=== PATIENT | female | born 1940 | race Caucasian/White ===

== ENCOUNTER 2020-04-11 08:07 | Outpatient (CLI) | payer MEDICARE, SELFPAY ==
[2020-04-11 08:56] LABS: Anion Gap 7 mmol/L (8-16); Blood Urea Nitrogen 22 mg/dL (7-17); Calcium 9.2 mg/dL (8.4-10.2); Carbon Dioxide 30 mmol/L (22-30); Chloride 103 mmol/L (98-107); Cholesterol 263 mg/dL (0-200); Estimated Glomerular Filt Rate 60; Glucose 95 mg/dL (65-105); HDL Direct 81 mg/dL; Potassium 4.6 mmol/L (3.4-5.0); Sodium 140 mmol/L (137-145); Triglycerides 87 mg/dL (<150)
[2020-04-11 09:06] LABS: LDL Cholesterol Direct 130 mg/dL
[2020-04-11 09:47] LABS: Vitamin D 25 Hydroxy 69.9 ng/mL
== END 2020-04-11 08:08 | disposition home or self-care (01) ==
LOC: ANHLAB 08:10
PROVIDERS: PCP Internal Medicine; Visit Provider Internal Medicine
DX: E78.5 Hyperlipidemia, unspecified (principal); I10 Essential (primary) hypertension; E55.9 Vitamin D deficiency, unspecified
CPT/HCPCS: 36415; 80048; 80061; 82306

== ENCOUNTER 2020-05-10 08:48 | Outpatient (CLI) | payer MEDICARE, SELFPAY | END 2020-05-10 08:49 | disposition home or self-care (01) | LOC: ANHAUDIO 08:49 | PROVIDERS: PCP Internal Medicine; Visit Provider Internal Medicine | DX: H90.3 Sensorineural hearing loss, bilateral (principal) | CPT/HCPCS: 92557; 92567 ==

== ENCOUNTER 2020-11-20 14:51 | Outpatient (RCR) | payer MEDICARE, SELFPAY | END 2021-02-18 23:59 | disposition home or self-care (01) | LOC: ANHAUDASC 14:51 | PROVIDERS: PCP Internal Medicine; Visit Provider Internal Medicine | DX: Z46.1 Encounter for fitting and adjustment of hearing aid (principal) | CPT/HCPCS: 92593 ==

== ENCOUNTER 2021-04-06 07:26 | Outpatient (CLI) | payer MEDICARE, SELFPAY ==
[2021-04-06 09:48] LABS: Anion Gap 4 mmol/L (8-16); Blood Urea Nitrogen 20 mg/dL (7-17); Calcium 9.6 mg/dL (8.4-10.2); Carbon Dioxide 31 mmol/L (22-30); Chloride 105 mmol/L (98-107); Cholesterol 268 mg/dL (0-200); Estimated Glomerular Filt Rate 60; Glucose 90 mg/dL (65-110); HDL Direct 80 mg/dL; Potassium 4.7 mmol/L (3.4-5.0); Sodium 140 mmol/L (137-145); Triglycerides 119 mg/dL (<150)
[2021-04-06 09:58] LABS: LDL Cholesterol Direct 106 mg/dL
== END 2021-04-06 07:27 | disposition home or self-care (01) ==
PROVIDERS: PCP Internal Medicine; Visit Provider Internal Medicine
DX: E78.5 Hyperlipidemia, unspecified (principal); R03.0 Elevated blood-pressure reading, without diagnosis of hypertension
CPT/HCPCS: 36415; 80048; 80061

== ENCOUNTER 2021-06-07 13:42 | Outpatient (CLI) | payer MEDICARE, SELFPAY | END 2021-06-07 13:43 | disposition home or self-care (01) | LOC: ANHAUDASC 13:44 | PROVIDERS: PCP Internal Medicine; Visit Provider Internal Medicine | DX: H91.90 Unspecified hearing loss, unspecified ear (principal) | CPT/HCPCS: 92557; 92567 ==

== ENCOUNTER 2021-10-05 08:46 | Outpatient (RCR) | payer SELFPAY | END 2022-01-03 23:59 | disposition home or self-care (01) | LOC: ANHAUDASC 08:46 | PROVIDERS: PCP Internal Medicine; Visit Provider Internal Medicine | DX: Z46.1 Encounter for fitting and adjustment of hearing aid (principal) | CPT/HCPCS: 92593 ==

== ENCOUNTER 2022-01-31 09:50 | Outpatient (RCR) | payer SELFPAY | END 2022-05-01 23:59 | disposition home or self-care (01) | LOC: ANHAUDASC 09:50 | PROVIDERS: PCP Internal Medicine; Visit Provider Internal Medicine | DX: Z46.1 Encounter for fitting and adjustment of hearing aid (principal) | CPT/HCPCS: 92593 ==

== ENCOUNTER 2022-04-18 09:58 | Outpatient (CLI) | payer MEDICARE, SELFPAY ==
[2022-04-18 10:41] LABS: Alanine Aminotransferase 11 U/L (6-35); Albumin Level 4.3 g/dL (3.5-5.1); Alkaline Phosphatase 72 U/L (38-126); Anion Gap 7 mmol/L (8-16); Aspartate Amino Transferase 25 U/L (14-36); Blood Urea Nitrogen 22 mg/dL (7-17); Carbon Dioxide 30 mmol/L (22-30); Chloride 101 mmol/L (98-107); Cholesterol 278 mg/dL (0-200); Estimated Glomerular Filt Rate 60; Glucose 96 mg/dL (65-110); HDL Direct 84 mg/dL; Potassium 4.7 mmol/L (3.4-5.0); Sodium 138 mmol/L (137-145); Triglycerides 100 mg/dL (<150)
[2022-04-18 10:52] LABS: LDL Cholesterol Direct 122 mg/dL
[2022-04-18 11:07] LABS: Vitamin D 25 Hydroxy 48.7 ng/mL
== END 2022-04-18 09:59 | disposition home or self-care (01) ==
PROVIDERS: PCP Internal Medicine; Visit Provider Internal Medicine
DX: E78.5 Hyperlipidemia, unspecified (principal); I10 Essential (primary) hypertension; E55.9 Vitamin D deficiency, unspecified
CPT/HCPCS: 36415; 80053; 80061; 82306

== ENCOUNTER 2022-06-10 09:49 | Outpatient (CLI) | payer MEDICARE, SELFPAY | END 2022-06-10 09:50 | disposition home or self-care (01) | PROVIDERS: PCP Internal Medicine; Visit Provider Nurse Practitioner | DX: H90.3 Sensorineural hearing loss, bilateral (principal) | CPT/HCPCS: 92557; 92567 ==

== ENCOUNTER 2022-06-27 09:42 | Outpatient (CLI) | payer MEDICARE, SELFPAY ==
--- NOTE | ~2022-06-27 | MM_ITS ---
EXAMINATION: MM screening [facility] BI w tariq HISTORY: Screening TECHNIQUE: Craniocaudal and mediolateral oblique 3-D tomosynthesis images were obtained and synthetic 2-D images were generated. CAD analysis was submitted and interpreted. COMPARISON: Comparison to multiple prior studies sequentially, with oldest reviewed study dated 03/24. BREAST PARENCHYMAL COMPOSITION: There are scattered areas of fibroglandular density. FINDINGS: There is no evidence of suspicious mass, calcification, or architectural distortion to sugg est malignancy in either breast. There has been no suspicious interval change. IMPRESSION: 1. No mammographic evidence of malignancy. 2. Recommend routine screening mammography in one year. BI-RADS Category 1: Negative Reviewed, dictated and finalized at location A.
== END 2022-06-27 09:43 | disposition home or self-care (01) ==
PROVIDERS: PCP Internal Medicine; Visit Provider Nurse Practitioner
DX: Z12.31 Encounter for screening mammogram for malignant neoplasm of breast (principal)
CPT/HCPCS: 77063; 77067

== ENCOUNTER 2023-04-24 08:26 | Outpatient (CLI) | payer MEDICARE, SELFPAY ==
[2023-04-24 09:14] LABS: Alanine Aminotransferase 16 U/L (6-35); Albumin Level 4.2 g/dL (3.5-5.1); Alkaline Phosphatase 73 U/L (38-126); Anion Gap 4 mmol/L (8-16); Aspartate Amino Transferase 29 U/L (14-36); Bilirubin,Total 1.1 mg/dL (0.2-1.3); Blood Urea Nitrogen 22 mg/dL (7-17); Calcium 9.2 mg/dL (8.4-10.2); Carbon Dioxide 31 mmol/L (22-30); Chloride 103 mmol/L (98-107); Cholesterol 272 mg/dL (0-200); Estimated Glomerular Filt Rate > 60; Glucose 92 mg/dL (65-110); HDL Direct 86 mg/dL; Potassium 4.6 mmol/L (3.4-5.0); Sodium 138 mmol/L (137-145); Triglycerides 83 mg/dL (<150)
[2023-04-24 09:25] LABS: LDL Cholesterol Direct 131 mg/dL
[2023-04-24 09:58] LABS: Vitamin D 25 Hydroxy 32.3 ng/mL
== END 2023-04-24 08:27 | disposition home or self-care (01) ==
PROVIDERS: PCP Nurse Practitioner; Visit Provider Nurse Practitioner
DX: E78.5 Hyperlipidemia, unspecified (principal); E55.9 Vitamin D deficiency, unspecified
CPT/HCPCS: 36415; 80053; 80061; 82306

== ENCOUNTER 2023-06-26 07:48 | Outpatient (CLI) | payer MEDICARE, SELFPAY | END 2023-06-26 07:49 | disposition home or self-care (01) | LOC: ANHAUDASC 08:43 | PROVIDERS: PCP Nurse Practitioner; Visit Provider Nurse Practitioner | DX: H90.3 Sensorineural hearing loss, bilateral (principal) | CPT/HCPCS: 92557; 92567 ==

== ENCOUNTER 2023-09-29 09:31 | Outpatient (CLI) | payer MEDICARE, SELFPAY ==
--- NOTE | ~2023-09-29 | MM_ITS ---
EXAMINATION: MM screening [facility] BI w tariq HISTORY: Screening mammogram TECHNIQUE: Craniocaudal and mediolateral oblique 3-D tomosynthesis images were obtained and synthetic 2-D images were generated. CAD analysis was submitted and interpreted. COMPARISON: 06/27/2022, 04/23/2016 BREAST PARENCHYMAL COMPOSITION: There are scattered areas of fibroglandular density. FINDINGS: No suspicious mass, calcification, or architectural distortion are identified in either rivka ast to suggest malignancy. There has been no suspicious interval change. IMPRESSION: 1. No mammographic evidence of malignancy. 2. Recommend routine screening mammography while the patient remains in good health. BI-RADS Category 1: Negative Reviewed, dictated and finalized at location A. MANAGER IMPRESSION: 1. No mammographic evidence of malignancy. 2. Recommend routine screening mammography while the patient remains in good he alth. BI-RADS Category 1: Negative
== END 2023-09-29 09:32 | disposition home or self-care (01) ==
LOC: ANHIMG 09:33
PROVIDERS: PCP Nurse Practitioner; Visit Provider Nurse Practitioner
DX: Z12.31 Encounter for screening mammogram for malignant neoplasm of breast (principal)
CPT/HCPCS: 77063; 77067

== ENCOUNTER 2024-05-01 08:00 | Outpatient (CLI) | payer MEDICARE, SELFPAY ==
[2024-05-01 08:51] LABS: Hematocrit 43.3 % (37.0-47.0); Mean Corpuscular HGB Conc 32.3 g/dl (32-36); Mean Corpuscular Hemoglobin 29.2 pg (26-34); Mean Corpuscular Volume 90.2 fl (80-100); Mean Platelet Volume 11.1 fl (7.4-10.4); Platelet Count Result 305 k/mm3 (150-375); Red Cell Distribution Width 14.2 % (11.5-14.5); White Blood Count 4.9 K/mm3 (4.5-10.0)
[2024-05-01 09:27] LABS: LDL Cholesterol Direct 137 mg/dL
[2024-05-01 09:30] LABS: Alanine Aminotransferase 16 U/L (6-35); Albumin Level 4.3 g/dL (3.5-5.1); Alkaline Phosphatase 71 U/L (38-126); Anion Gap 8 mmol/L (4-12); Aspartate Amino Transferase 30 U/L (14-36); Bilirubin,Total 1.2 mg/dL (0.2-1.3); Blood Urea Nitrogen 19 mg/dL (7-17); Calcium 9.3 mg/dL (8.4-10.2); Carbon Dioxide 30 mmol/L (22-30); Chloride 102 mmol/L (98-107); Cholesterol 274 mg/dL (0-200); Estimated Glomerular Filt Rate 60; Glucose 91 mg/dL (65-110); HDL Direct 91 mg/dL; Potassium 4.3 mmol/L (3.4-5.0); Sodium 140 mmol/L (137-145); Triglycerides 99 mg/dL (<150)
== END 2024-05-01 08:01 | disposition home or self-care (01) ==
LOC: ANHLAB 08:03
PROVIDERS: PCP Nurse Practitioner; Visit Provider Nurse Practitioner
DX: E78.5 Hyperlipidemia, unspecified (principal); Z13.29 Encounter for screening for other suspected endocrine disorder
CPT/HCPCS: 36415; 80053; 80061; 84443; 85027

== ENCOUNTER 2024-05-27 12:48 | Outpatient (CLI) | payer MEDICARE, SELFPAY | END 2024-05-27 12:49 | disposition home or self-care (01) | LOC: ANHAUDASC 12:50 | PROVIDERS: PCP Nurse Practitioner; Visit Provider Nurse Practitioner | DX: H90.3 Sensorineural hearing loss, bilateral (principal) | CPT/HCPCS: 92557; 92567 ==

== ENCOUNTER 2024-11-08 10:00 | Outpatient (CLI) | payer MEDICARE, SELFPAY ==
--- NOTE | ~2024-11-08 | MM_ITS ---
EXAMINATION: MM screening mario BI w tariq HISTORY: Screening TECHNIQUE: Craniocaudal and mediolateral oblique 3-D tomosynthesis images were obtained and synthetic 2-D images were generated. CAD analysis was submitted and interpreted. COMPARISON: Comparison to multiple prior studies sequentially, with oldest reviewed study dated 04/23. BREAST PARENCHYMAL COMPOSITION: Not dense: There are scattered areas of fibroglandular density. FINDINGS: There is no evidence of suspicious mass, calcification, or architectural distortion to sugg est malignancy in either breast. There has been no suspicious interval change. IMPRESSION: 1. No mammographic evidence of malignancy. 2. Recommend routine screening mammography in one year. BI-RADS Category 1: Negative Reviewed, dictated and finalized at location B.
--- OUTSIDE RECORDS SUMMARY | 2024-11-08 11:25 | XMS_ITS | Patient Health Summary ---
Author Organization [facility] Address [address] [facility] [place] [address] Care Team Providers Care Mobility Specialist Name Role Phone Gabriel Walter MD Primary Care Provider [phone] Note from [facility],non-owned Affiliates and Associated Physician Practices is amultiple site organization consisting of ambulatory clinics and hospital sitesin [place], [place], [place]. This disclosure is being madepursuant to the Care Everywhere program and may not contain all information available regarding this patient. Last updated 18.[facility] Allergies * Sulfa Drugs(Skin Reactions) -Medium Criticality Medications * Be aware that medications may not be up to date on this document. Alwaysverify current medications with the patient. * esomeprazole strontium 24.65 MG capsule(Started 04/22/2016) Take by mouth. * vitamin C (ASCORBIC ACID) 1000 MG tablet(Started 04/22/2016) Take by mouth. * Calcium Magnesium 240-180-100 LIQD(Started 04/22/2016) Take by mouth. Social History Tobacco Use Types Packs/Day Years Used Date Smoking Tobacco: Never Smokeless Tobacco: Never Alcohol Use Standard Drinks/Week Comments No 0 (1 standard drink = 0.6 oz pur e alcohol) Sex and Gender Information Value Date Recorded Sex Assigned at Not on file Gender Identity Not on file Sexual Orientation Not on file Last Filed Vital Signs Vital Sign Reading Time Taken Comments Blood Pressure 174/102 10/20/2017 11:10 AM CONSUMER RELATIONS SPECIALIST Pulse 67 10/20/2017 11:10 AM CONSUMER RELATIONS SPECIALIST Temperature - - Respiratory Rate - - Oxygen Saturation 96% 10/20/2017 11:10 AM CONSUMER RELATIONS SPECIALIST Inhaled Oxygen Concentration - - Weight 59 kg (130 lb) 10/20/2017 8:40 AM CONSUMER RELATIONS SPECIALIST Height 157.5 cm (5' 2 ) 10/20/2017 8:40 AM CONSUMER RELATIONS SPECIALIST Body Mass Index 23.78 10/20/2017 8:40 AM CONSUMER RELATIONS SPECIALIST Procedures * DERMATOPATHOLOGY(Performed 04/06/2024) * DERMATOPATHOLOGY(Performed 02/28/2021) * DERMATOPATHOLOGY(Performed 04/05/2020) * DERMATOPATHOLOGY(Performed 09/09/2017) * DERMATOPATHOLOGY(Performed 03/04/2017) * DERMATOPATHOLOGY(Performed 10/22/2016) * DERMATOPATHOLOGY(Performed 03/26/2016) * DERMATOPATHOLOGY(Performed 06/27/2015) * DERMATOPATHOLOGY(Performed 04/09/2011) Results * DERMATOPATHOLOGY (04/06/2024 12:00 AM CDT) Only the most recent of9 resultswithin the time period is included. Case Report Dermatopathology Report Case: [id number] Authorizing Provider: Kwame Pathak MD Collected: 04/06/2024 12:00 AM Ordering Location: [facility] - Received: 04/08/2024 09:52 AM DermPath Lab Pathologist: Nara Christopher MD Specimen: Skin, left distal medial leg above ankle 1:26 PM CDT DERMATOPATHOLOGY LABORATORY Final Diagnosis Specimen A. SKIN, left distal medial leg above ankle: DERMAL SCAR WITH OVERLYING EPIDERMAL CHANGES (L90.5) 1:26 PM CDT DERMATOPATHOLOGY LABORATORY Clinical History R/O SCC 1:26 PM CDT DERMATOPATHOLOGY LABORATORY Gross Description Specimen A: Received is one formalin filled container labeled with the patient's name and designated left distal medial leg above ankle. The specimen consists of a shave biopsy measuring 3x4x1 mm. Jar 0. 1:26 PM CDT DERMATOPATHOLOGY LABORATORY Microscopic Description Specimen A. SKIN, left distal medial leg above ankle: Sections show focally laminated fibroplasia and prominent blood vessels. There are plump fibrocytes and inflammation. Reactive epidermal changes are also identified consistent with a prior biopsy site. 4 1:26 PM CDT DERMATOPATHOLOGY LABORATORY Disclaimer An external and internal positive and negative controls are appropriate for the histochemical, immunohistochemical and immunofluorescence stain(s) in this case (if any), except where stated explicitly. The performance characteristics of the stain(s) cited in this report were developed and its performance characteristic determined by the Dermatopathology Laboratory at [facility], directed by Dr. Delroy Christopher. These tests need not be, and therefore are not, approved by the [place] Food and Drug Administration. The tests are used for clinical purposes. Billing Codes Specimen Charges Stain Charges 20773 1 4 1:26 PM CDT DERMATOPATHOLOGY LABORATORY Embedded Images 4 1:26 PM CDT DERMATOPATHOLOGY LABORATORY Pathology/Cytolog y TISSUE SPECIMEN FROM SKIN / Unknown 04/06/2024 04/08/2024 9:52 AM CDT Kwame Pathak MD LAB - PATHOLOGY/CYTO LOGY ORDERABLES DERMATOPATHOLOGY LABORATORY [facility] - Department of Dermatology [facility], 3rd Floor [address] [phone] Care Teams Mobility Specialist Relationship Specialty Start Date End Date Gabriel Walter MD [address] [place] [address] PCP - General 07/13/15
--- OUTSIDE RECORDS SUMMARY | 2024-11-08 11:25 | XMS_ITS | Encounter Summary ---
Author Organization [facility] Address [address] [place] [address] Care Team Providers Care Implementation Analyst Name Role Phone Gabriel Walter MD Primary Care Provider [phone] Encounter Details Date Type Department Care Team (Late st Contact Info) Description 04/07/2020 Lab Requisition [facility] [address] [place] [address] Kwame Pathak MD [address] [place] [address] Social History Tobacco Use Types Packs/Day Years Used Date Smoking Tobacco: Never Smokeless Tobacco: Never Alcohol Use Standard Drinks/Week Comments No 0 (1 standard drink = 0.6 oz pur e alcohol) Sex and Gender Information Value Date Recorded Sex Assigned at Not on file Gender Identity Not on file Sexual Orientation Not on file documented as of this encounter Plan of Treatment Not on file documented as of this encounter Procedures Procedure Name Priority Date/Time Associated Diagnosis Comments DERMATOPATHOLOGY Routine 04/05/2020 12:0 0 AM CDT documented in this encounter Results * DERMATOPATHOLOGY (04/05/2020 12:00 AM CDT) Case Report Dermatopathology Report Case: [id number] Authorizing Provider: Kwame Pathak MD Collected: 04/05/2020 12:00 AM Ordering Location: [facility] Received: 04/07/2020 02:30 PM Pathologist: Brinda Abreu MD Specimen: Skin, right sup lateral calf 0 3:42 PM CDT DERMATOPATHOLOGY LABORATORY Final Diagnosis Specimen A. SKIN, right sup lateral calf: SQUAMOUS CELL CARCINOMA, WELL DIFFERENTIATED (C44.722) 0 3:42 PM CDT DERMATOPATHOLOGY LABORATORY Clinical History R/O ISK, SCC,BCC 0 3:42 PM CDT DERMATOPATHOLOGY LABORATORY Gross Description Specimen A: Received is one formalin filled container labeled with the patient's name and designated right sup lateral calf. The specimen consists of a shave biopsy measuring 56c16v8 mm,bisected. Jar 0. 0 3:42 PM CDT DERMATOPATHOLOGY LABORATORY Microscopic Description Specimen A. SKIN, right sup lateral calf: Arising in the epidermis and extending into the dermis there are irregularly shaped aggregates of keratinocytes showing evidence of premature cornification. 0 3:42 PM CDT DERMATOPATHOLOGY LABORATORY Disclaimer An external and internal positive and negative controls are appropriate for the histochemical, immunohistochemical and immunofluorescence stain(s) in this case (if any), except where stated explicitly. The performance characteristics of the stain(s) cited in this report were developed and its performance characteristic determined by the Dermatopathology Laboratory at [facility], directed by Dr. Delroy Christopher. These tests need not be, and therefore are not, approved by the [place] Food and Drug Administration. The tests are used for clinical purposes. Billing Codes Specimen Charges Stain Charges 86613 1 0 3:42 PM CDT DERMATOPATHOLOGY LABORATORY Embedded Images 0 3:42 PM CDT DERMATOPATHOLOGY LABORATORY Pathology/Cytolog y TISSUE SPECIMEN FROM SKIN / Unknown 04/05/2020 04/07/2020 2:30 PM CDT Kwame Pathak MD LAB - PATHOLOGY/CYTO LOGY ORDERABLES DERMATOPATHOLOGY LABORATORY [facility] - Department of Dermatology [employer] [place]/[address] [phone] documented in this encounter Visit Diagnoses Not on filedocumented in this encounter Care Teams Implementation Analyst Relationship Specialty Start Date End Date Gabriel Walter MD [address] [facility] [address] [place] [address] PCP - General 07/13/15 documented as of this encounter
--- OUTSIDE RECORDS SUMMARY | 2024-11-08 11:25 | XMS_ITS | Encounter Summary ---
Author Organization [facility] Address [address] [facility] [place] [address] Care Team Providers Care Audiology Director Name Role Phone Gabriel Walter MD Primary Care Provider [phone] Encounter Details Date Type Department Care Team (Late st Contact Info) Description 04/08/2024 Lab Requisition [facility] - [facility] Lab [address] [facility], [place] [address] Kwame Pathak MD [address] [place] [address] Social History Tobacco Use Types Packs/Day Years [...] Priority Date/Time Associated Diagnosis Comments DERMATOPATHOLOGY Routine 04/06/2024 12:0 0 AM CDT documented in this encounter Results * DERMATOPATHOLOGY (04/06/2024 12:00 AM CDT) Case Report Dermatopathology Report Case: [id number] Authorizing Provider: Kwame Pathak MD Collected: 04/06/2024 12:00 AM Ordering Location: [facility] - Received: 04/08/2024 09:52 AM DermPath Lab Pathologist: Nara Christopher MD Specimen: Skin, left distal medial leg above ankle 1:26 PM CDT DERMATOPATHOLOGY LABORATORY Final Diagnosis Specimen A. SKIN, left distal medial leg above ankle: DERMAL SCAR WITH OVERLYING EPIDERMAL CHANGES (L90.5) 1:26 PM T DERMATOPATHOLOGY LABORATORY Clinical History R/O SCC 1:26 [...] identified consistent with a prior biopsy site. 1:26 PM CDT DERMATOPATHOLOGY LABORATORY Disclaimer An external and internal positive and negative controls are appropriate for the histochemical, immunohistochemical and immunofluorescence stain(s) in this case (if any), except where stated explicitly. The performance characteristics of the stain(s) cited in this report were developed and its performance characteristic determined by the Dermatopathology Laboratory at [facility], directed by Dr. Delroy Christopher. These tests need not be, and therefore are not, approved by the [place] Food and Drug Administration. The tests are used for clinical purposes. Billing Codes Specimen Charges Stain Charges 45697 1 1:26 PM CDT DERMATOPATHOLOGY LABORATORY Embedded Images 1:26 PM CDT DERMATOPATHOLOGY LABORATORY Pathology/Cytolog y TISSUE SPECIMEN FROM SKIN / Unknown 04/06/2024 04/08/2024 9:52 AM CDT Kwame Pathak MD LAB - PATHOLOGY/CYTO LOGY ORDERABLES DERMATOPATHOLOGY LABORATORY [facility] - Department of Dermatology [address], [address] [phone] documented in this encounter Visit Diagnoses Not on filedocumented in this encounter Care Teams Audiology Director Relationship Specialty Start Date End Date Gabriel Walter MD [address] [facility] [address] [place] [address] PCP - General 07/13/15 documented as of this encounter
--- OUTSIDE RECORDS SUMMARY | 2024-11-08 11:25 | XMS_ITS | Referral Summary ---
Author Organization [facility] [employer] Address [address] [facility] [place] [address] Care Team Providers Care Retort Kiln Burner Name Role Phone Gabriel Walter MD Primary Care Provider [phone] Source Comments [facility],non-owned Affiliates and Associated Physician Practices is amultiple site organization consisting of ambulatory clinics and hospital sitesin [place], [place], [place] and [place]. This disclosure is being madepursuant to the Care Everywhere program and may not contain all information available regarding this patient. Last updated 18.[facility] [employer] Allergies Active Allergy Reactions Criticality Noted Date Comments Sulfa Drugs Skin Reactions Medium 08/07/2015 Medications * Be aware that medications may not be up to date on this document. Alwaysverify current medications with the patient. Medication Sig Dispensed Refills Start Date End Date Status esomeprazole strontium 24.65 MG capsule Take by mouth. 04/22/2016 Acti ve vitamin C (ASCORBIC ACID) 1000 MG tablet Take by mouth. 04/22/2016 Active Calcium Magnesium 240-180-100 LIQD Take by mouth. 04/22/2016 Acti ve Social History Tobacco Use Types Packs/Day Years [...] Comments Blood Pressure 174/102 10/20/2017 11:10 AM MANAGER RESORT Pulse 67 10/20/2017 11:10 AM MANAGER RESORT Temperature - - Respiratory Rate - - Oxygen Saturation 96% 10/20/2017 11:10 AM MANAGER RESORT Inhaled Oxygen Concentration - - Weight 59 kg (130 lb) 10/20/2017 8:40 AM MANAGER RESORT Height 157.5 cm (5' 2 ) 10/20/2017 8:40 AM MANAGER RESORT Body Mass Index 23.78 10/20/2017 8:40 AM MANAGER RESORT Plan of Treatment Not on file Care Teams Retort Kiln Burner Relationship Specialty Start Date End Date Gabriel Walter MD [address] [place] [address] PCP - General 07/13/15
--- OUTSIDE RECORDS SUMMARY | 2024-11-08 11:25 | XMS_ITS | Referral Summary ---
Author Organization [facility] Address [address] [place] [address] Care Team Providers Care Inside Sales Executive Name Role Phone Anuel Norton DO Primary Care Provider [phone] Allergies Active Allergy Reactions Criticality Noted Date Comments Sulfa (Sulfonamide Antibiotics) Rash Reaction: RASH, Medications calcium citrate 250 mg calcium tablet daily. Active glucosamine-msm- magnesium-vitC (GLUCOSAMINE COMPLEX-MSM) capsule Active magnesium oxide 500 mg capsule Activ e multivitamin tabletIndication s:Vitamin Deficiency Prevention Active strontium chloride hexahydrate (STRONTIUM CHL HEXAHYD, BULK,) 100 % crystals Activ e exaschban-M02-FZ -resveratrol 200-5-0.8-400 mg capsule Active cyanocobalamin (Vitamin B-12) 100 mcg tabletIndication s:Prevention of Vitamin B12 Deficiency Active ascorbic acid, vitamin C, 500 mg capsule Active cholecalciferol (VITAMIN D-3) 10,000 unit tablet Active vitamin E (AQUASOL E) 400 unit capsule TAKE 1 CAPSULE EVERY MORNING Active phytonadione, vit K1, (PHYTONADIONE, VITAMIN K1,) 100 mcg tablet Active omega 2-dnm-ddb-fish oil (FISH OIL) 1,000 mg (120 mg-180 mg) capsule Active akiw-ppbw-qqb-ibrahim i-mga-olzw-hor [phone] mg tablet Take by mouth. Active Active Problems Problem Noted Date Diagnosed Date Cellulitis of head or scalp 10/13/2020 Assessment & Plan (10/27/2020 2:26 PM SPORTS NUTRITIONIST): Call if scalp irritation returns Continue Probiotic for two more weeks Assessment & Plan (10/13/2020 2:46 PM SPORTS NUTRITIONIST): Start Doxycycline 100 mg twice daily for 14 days, Probiotic such as Culturelle at a different meal 4 hours in between Follow up in 2 weeks Call if this becomes worse ASNHL (asymmetrical sensorineural hearing loss) 07/05/2019 Assessment & Plan (07/05/2019 10:44 AM SPORTS NUTRITIONIST): Flonase 2 sprays into each nostril while looking down over the sink, do not sniff in or blow nose after use. 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 Consider Head scan if Word recognition continues to decline Assessment & Plan (04/15/2019 3:00 PM CDT): Nasal saline (Dubois spray, NeilMed, Lil' Noses, [place]) or Neti-pot followed Flonase or Nasacort 2 sprays into each nostril while looking down over the sink, do not sniff in or blow nose after use daily Call if no improvement in 6 weeks Anosmia 04/15/2019 Assessment & Plan (04/15/2019 3:00 PM CDT): Nasal saline (Dubois spray, NeilMed, Lil' Noses, [place]) or Neti-pot followed Flonase or Nasacort 2 sprays into each nostril while looking down over the sink, do not sniff in or blow nose after use daily Call if no improvement in 6 weeks Social History Tobacco Use Types Packs/Day Years Used Date Smoking Tobacco: Never Smokeless Tobacco: Never Alcohol Use Standard Drinks/Week Comments No 0 (1 standard drink = 0.6 oz pur e alcohol) Personal Safety Answer Date Recorded Getting School Help Needed Not on file 10/21 Comments No Sex and Gender Information Value Date Recorded Sex Assigned at Not on file Legal Sex Female 11:05 AM SPORTS NUTRITIONIST Gender Identity Not on file Sexual Orientation Not on file Last Filed Vital Signs Vital Sign Reading Time Taken Comments Blood Pressure 137/74 10/27/2020 1:54 PM SPORTS NUTRITIONIST Pulse 81 10/27/2020 1:54 PM SPORTS NUTRITIONIST Temperature 36.1 C (96.9 F) 10/27/2020 1:54 PM SPORTS NUTRITIONIST Respiratory Rate - - Oxygen Saturation 99% 08/06/2016 12:19 PM SPORTS NUTRITIONIST Inhaled Oxygen Concentration - - Weight 58.1 kg (128 lb) 10/27/2020 1:54 PM SPORTS NUTRITIONIST Height 160 cm (5' 3 ) 10/27/2020 1:54 PM SPORTS NUTRITIONIST Body Mass Index 22.67 10/27/2020 1:54 PM SPORTS NUTRITIONIST Plan of Treatment Not on file Insurance MEDICARE [facility] MEDICARE [facility] Care Teams Inside Sales Executive Relationship Specialty Start Date End Date Anuel Norton DO PCP - General Internal Medicine 05/14/18
--- OUTSIDE RECORDS SUMMARY | 2024-11-08 11:25 | XMS_ITS | Encounter Summary ---
Author Organization [facility] Address [address] [facility] [place] [address] Care Team Providers Care Investment Analyst Name Role Phone Gabriel Walter MD Primary Care Provider [phone] Encounter Details Date Type Department Care Team (Late st Contact Info) Description 03/01/2021 Lab Requisition [facility] Derm[facility] Lab [address] [place] [address] Kwame Pathak MD [address] [place] [address] Social History Tobacco Use Types Packs/Day Years [...] Priority Date/Time Associated Diagnosis Comments DERMATOPATHOLOGY Routine 02/28/2021 3:33 AM CDT documented in this encounter Results * DERMATOPATHOLOGY (02/28/2021 3:33 AM CDT) Case Report Dermatopathology Report Case: [id number] Authorizing Provider: Kwame Pathak MD Collected: 02/28/2021 03:33 AM Ordering Location: [facility] Received: 03/01/2021 12:11 PM Pathologist: Nara Christopher MD Specimens: A) - Skin, right mid lateral calf B) - Skin, right posterior lateral lower calf 3:42 PM T DERMATOPATHOLOGY LABORATORY Final Diagnosis Specimen A. SKIN, right mid lateral calf: POROKERATOSIS (Q82.8) Specimen B. SKIN, right posterior lateral lower calf: BASAL CELL CARCINOMA, NODULAR TYPE (C44.712) 3:42 PM T DERMATOPATHOLOGY LABORATORY Clinical History A-B: R/O BCC, SCC. 3:42 PM T DERMATOPATHOLOGY LABORATORY Gross Description Specimen A: Received is one formalin filled container labeled with the patient's name and designated right mid lateral calf. The specimen consists of a shave biopsy measuring 0o4t1qa. Jar 0. Specimen B: Received is one formalin filled container labeled with the patient's name and designated right posterior lateral lower calf. The specimen consists of a shave biopsy measuring 8m6g0vv. Jar 0. 3:42 PM T DERMATOPATHOLOGY LABORATORY Microscopic Description Specimen A. SKIN, right mid lateral calf: There is a sparse to moderately dense lichenoid lymphohistiocytic infiltrate, a thinned epidermis, and cornoid lamella formation. Specimen B. SKIN, right posterior lateral lower calf: Within the dermis there are aggregates of basaloid cells with a high nuclear to cytoplasmic ratio and peripheral palisading. 3:42 PM T DERMATOPATHOLOGY LABORATORY Disclaimer An external and internal positive and negative controls are appropriate for the histochemical, immunohistochemical and immunofluorescence stain(s) in this case (if any), except where stated explicitly. The performance characteristics of the stain(s) cited in this report were developed and its performance characteristic determined by the Dermatopathology Laboratory at [facility], directed by Dr. Delroy Christopher. These tests need not be, and therefore are not, approved by the [place] Food and Drug Administration. The tests are used for clinical purposes. Billing Codes Specimen Charges Stain Charges 54596 85944 1 1 3:42 PM CDT DERMATOPATHOLOGY LABORATORY Embedded Images 3:42 PM CDT DERMATOPATHOLOGY LABORATORY Pathology/Cytology TISSUE SPECIMEN FROM SKIN / Unknown 02/28/2021 3:33 AM CDT 03/01/2021 12:11 PM CDT Miscellaneous samples (specimen) TISSUE SPECIMEN FROM SKIN / Unknown 02/28/2021 3:33 AM CDT 03/01/2021 12:11 PM CDT Kwame Pathak MD LAB - PATHOLOGY/CYTO LOGY ORDERABLES DERMATOPATHOLOGY LABORATORY [facility] - Department of Dermatology [facility] Medicine [address] [place] [address], [address] [phone] documented in this encounter Visit Diagnoses Not on filedocumented in this encounter Care Teams Investment Analyst Relationship Specialty Start Date End Date Gabriel Walter MD [address] [facility] [address] [place] [address] PCP - General 07/13/15 documented as of this encounter
--- OUTSIDE RECORDS SUMMARY | 2024-11-08 11:25 | XMS_ITS | Clinical Summary ---
Author Organization [facility] Address [address] [place] [address] Care Team Providers Care Control Analyst Name Role Phone Anuel Norton DO Primary Care Provider [phone] Allergies Active Allergy Reactions Criticality Noted Date Comments Sulfa (Sulfonamide Antibiotics) Rash Reaction: RASH, Medications calcium citrate 250 mg calcium tablet daily. Active glucosamine-msm- magnesium-vitC (GLUCOSAMINE COMPLEX-MSM) capsule Active magnesium oxide 500 mg capsule Activ e multivitamin tabletIndication s:Vitamin Deficiency Prevention Active strontium chloride hexahydrate (STRONTIUM CHL HEXAHYD, BULK,) 100 % crystals Activ e [id number] -resveratrol 200-5-0.8-400 mg capsule Active cyanocobalamin (Vitamin B-12) 100 mcg tabletIndication s:Prevention of Vitamin B12 Deficiency Active ascorbic acid, vitamin C, 500 mg capsule Active cholecalciferol (VITAMIN D-3) 10,000 unit tablet Active vitamin E (AQUASOL E) 400 unit capsule TAKE 1 CAPSULE EVERY MORNING Active phytonadione, vit K1, (PHYTONADIONE, VITAMIN K1,) 100 mcg tablet Active omega 4-vyb-yll-fish oil (FISH OIL) 1,000 mg (120 mg-180 mg) capsule Active ialc-jgkr-swc-ibrahim e-git-istp-hor 140-094-221-125 mg tablet Take by mouth. Active Active Problems Problem Noted Date Diagnosed Date Cellulitis of head or scalp 10/13/2020 Assessment & Plan (10/27/2020 2:26 PM MEDICAL LAB SPECIALIST): Call if scalp irritation returns Continue Probiotic for two more weeks Assessment & Plan (10/13/2020 2:46 PM MEDICAL LAB SPECIALIST): Start Doxycycline 100 mg twice daily for 14 days, Probiotic such as Culturelle at a different meal 4 hours in between Follow up in 2 weeks Call if this becomes worse ASNHL (asymmetrical sensorineural hearing loss) 07/05/2019 Assessment & Plan (07/05/2019 10:44 AM MEDICAL LAB SPECIALIST): Flonase 2 sprays into each nostril while looking down over the sink, do not sniff in or blow nose after use. 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 Consider Head scan if Word recognition continues to decline Assessment & Plan (04/15/2019 3:00 PM CDT): Nasal saline ([place] spray, NeilMed, Lil' Noses, [place]) or Neti-pot followed Flonase or Nasacort 2 sprays into each nostril while looking down over the sink, do not sniff in or blow nose after use daily Call if no improvement in 6 weeks Anosmia 04/15/2019 Assessment & Plan (04/15/2019 3:00 PM CDT): Nasal saline ([place] spray, NeilMed, Lil' Noses, Summers) or Neti-pot followed Flonase or Nasacort 2 sprays into each nostril while looking down over the sink, do not sniff in or blow nose after use daily Call if no improvement in 6 weeks Surgical History Surgery Date Site/Laterality Comments BREAST BIOPSY Bilateral BREAST LUMPECTOMY BREAST BIOPSY 05/31/2016 Right Medical History Medical History Date Comments Skin cancer Breast cancer (HCC) Family History Medical History Relation Name Comments Liver cancer Brother Family history of liver cancer - (Added by TW Conv) Testicular cancer Father Family his tory of malignant neoplasm of testis - (Added by TW Conv) Breast cancer Father's Sister Family hist ory of malignant neoplasm of breast - (Added by TW Conv) Relation Name Status Comments Brother Father Father's Sister Social History Tobacco Use Types Packs/Day Years [...] on file Legal Sex Female 11:05 AM MEDICAL LAB SPECIALIST Gender Identity Not on file Sexual Orientation Not on file Obstetrics History Last Filed Vital Signs Vital Sign Reading Time Taken Comments Blood Pressure 137/74 10/27/2020 1:54 PM MEDICAL LAB SPECIALIST Pulse 81 10/27/2020 1:54 PM MEDICAL LAB SPECIALIST Temperature 36.1 C (96.9 F) 10/27/2020 1:54 PM MEDICAL LAB SPECIALIST Respiratory Rate - - Oxygen Saturation 99% 08/06/2016 12:19 PM MEDICAL LAB SPECIALIST Inhaled Oxygen Concentration - - Weight 58.1 kg (128 lb) 10/27/2020 1:54 PM MEDICAL LAB SPECIALIST Height 160 cm (5' 3 ) 10/27/2020 1:54 PM MEDICAL LAB SPECIALIST Body Mass Index 22.67 10/27/2020 1:54 PM MEDICAL LAB SPECIALIST Plan of Treatment Not on file Insurance MEDICARE [facility] MEDICARE [facility]LY [facility] Care Teams Control Analyst Relationship Specialty Start Date End Date Anuel Norton DO PCP - General Internal Medicine 05/14/18
--- OUTSIDE RECORDS SUMMARY | 2024-11-08 11:25 | XMS_ITS | Clinical Summary ---
Author Organization [facility] [employer] Address [address] [place] [address] Care Team Providers Care Skin Lifter Bacon Name Role Phone Gabriel Walter MD Primary Care Provider [phone] Source Comments [facility] [employer],non-owned Affiliates and Associated Physician Practices is amultiple site organization consisting of ambulatory clinics and hospital sitesin [place], [place], [place] and [place]. This disclosure is being madepursuant to the Care Everywhere program and may not contain all information available regarding this patient. Last updated 18.[facility] [employer] Allergies Active Allergy Reactions Criticality Noted Date [...] LIQD Take by mouth. 04/22/2016 Acti ve Family History Medical History Relation Name Comments Cancer Brother 1 Heart Failure Brother 2 stents Cancer Father prostate Hypertension Mother Relation Name Status Comments Brother 1 Brother 2 Father Mother Social History Tobacco Use Types Packs/Day Years [...] Comments Blood Pressure 174/102 10/20/2017 11:10 AM AUTO CUSTOMIZE PAINTER Pulse 67 10/20/2017 11:10 AM AUTO CUSTOMIZE PAINTER Temperature - - Respiratory Rate - - Oxygen Saturation 96% 10/20/2017 11:10 AM AUTO CUSTOMIZE PAINTER Inhaled Oxygen Concentration - - Weight 59 kg (130 lb) 10/20/2017 8:40 AM AUTO CUSTOMIZE PAINTER Height 157.5 cm (5' 2 ) 10/20/2017 8:40 AM AUTO CUSTOMIZE PAINTER Body Mass Index 23.78 10/20/2017 8:40 AM AUTO CUSTOMIZE PAINTER Plan of Treatment Health Maintenance Due Date Last Done Comments BONE DENSITY TESTING 1940 MEDICARE AWV 12 MONTHS 1941 DTAP/TDAP/TD VACCINES (1 - Tdap) 01/08/1960 PNEUMOCOCCAL VACCINE 50+ (1 of 1 - PCV) 1991 ZOSTER VACCINE (1 of 2) 1991 Respiratory Syncytial Virus (RSV) Vaccine Pt: or over 60 yrs (1 - 1-dose 75+ series) 01/08/2016 COVID-19 VACCINE ( - 2023-2 5 season) 2024 INFLUENZA VACCINE (#1) 2024 DEPRESSION SCREENING 08/25/2024 HEPATITIS B VACCINE Aged Out No longe r eligible based on patient's age to complete this topic HIB VACCINE Aged Out No longer eligi ble based on patient's age to complete this topic HPV VACCINE Aged Out No longer eligi ble based on patient's age to complete this topic MENINGOCOCCAL (Group B) VACC INE SHARED DECISION-MAKING Aged Out No longer eligibl e based on patient's age to complete this topic MENINGOCOCCAL GROUPS A/C/Y/W VACCINE Aged Out No longer eligible b ased on patient's age to complete this topic Care Teams Skin Lifter Bacon Relationship Specialty Start Date End Date Gabriel Walter MD [address] [facility] [[email or web address]] [address] [place] [address] PCP - General 07/13/15
== END 2024-11-08 10:01 | disposition home or self-care (01) ==
LOC: ANHIMG 10:03
PROVIDERS: PCP Internal Medicine; Visit Provider Nurse Practitioner
DX: Z12.31 Encounter for screening mammogram for malignant neoplasm of breast (principal)
CPT/HCPCS: 77063; 77067

== ENCOUNTER 2025-05-02 07:44 | Outpatient (CLI) | payer MEDICARE, SELFPAY ==
--- OUTSIDE RECORDS SUMMARY | 2025-05-02 07:51 | XMS_ITS | Encounter Summary ---
Author Organization [facility] Address [address] [place] [address] Care Team Providers Care Piper Helper Name Role Phone Gabriel Walter MD Primary Care Provider [phone] Encounter Details Date Type Department Care Team (Late st Contact Info) Description 04/07/2020 Lab Requisition [facility] [address] [place] [address] Kwame Pathak MD [address] [place] [address] Social History Tobacco Use Types Packs/Day Years Used Date Smoking Tobacco: Never Smokeless Tobacco: Never Alcohol Use Standard Drinks/Week Comments No 0 (1 standard drink = 0.6 oz pur e alcohol) Comments Unknown Sex and Gender Information Value Date Recorded Sex Assigned at Not on file Legal Sex Female 5:34 PM NEONATAL ICU COORDINATOR Gender Identity Not on file Sexual Orientation Not on file documented as of this encounter Plan of Treatment Not on file documented as of this encounter Procedures Procedure Name Priority Date/Time Associated Diagnosis Comments DERMATOPATHOLOGY Routine 04/05/2020 12:0 0 AM CDT documented in this encounter Results * DERMATOPATHOLOGY (04/05/2020 12:00 AM CDT) Case Report Dermatopathology Report Case: [id number] Authorizing Provider: Kwame Pathak MD Collected: 04/05/2020 12:00 AM Ordering Location: [facility] Received: 04/07/2020 02:30 PM Pathologist: Brinda Abreu MD Specimen: Skin, right sup lateral calf 0 3:42 PM CDT DERMATOPATHOLOGY LABORATORY Final Diagnosis Specimen A. 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 The specimen consists of a shave biopsy measuring [id number] mm,bisected. Jar 0. 0 3:42 PM CDT [...] characteristic determined by the Dermatopathology Laboratory at [facility], directed by Dr. Delroy Christopher. These tests need not be, and therefore are not, approved by the [place] Food and Drug Administration. The tests are used for clinical purposes. Billing Codes Specimen Charges Stain Charges 03920 1 0 3:42 PM CDT DERMATOPATHOLOGY LABORATORY Embedded Images 0 3:42 PM CDT DERMATOPATHOLOGY LABORATORY Pathology/Cytolog y TISSUE SPECIMEN FROM SKIN / Unknown 04/05/2020 04/07/2020 2:30 PM CDT us Kwame Pathak MD LAB - PATHOLOGY/CYTOLOGY ORD ERABLES Final Result DERMATOPATHOLOGY LABORATORY [facility] - Department of Dermatology Principal Systems Architect [place] [id number], [place] [phone] documented in this encounter Visit Diagnoses Not on filedocumented in this encounter Care Teams Piper Helper Relationship Specialty Start Date End Date Gabriel Walter MD [address] [place] [address] PCP - General 07/13/15 documented as of this encounter
--- OUTSIDE RECORDS SUMMARY | 2025-05-02 07:51 | XMS_ITS | Encounter Summary ---
Author Organization [facility] Address [address] [place] [address] Care Team Providers Care Director Of Home Care Hospice Name Role Phone Gabriel Walter MD Primary Care Provider [phone] Encounter Details Date Type Department Care Team (Late st Contact Info) Description 03/01/2021 Lab Requisition [facility] Lab [address] [place] [address] Kwame Pathak MD [address] [place] [address] Social History Tobacco Use Types Packs/Day Years Used Date Smoking Tobacco: Never Smokeless Tobacco: Never Alcohol Use Standard Drinks/Week Comments No 0 (1 standard drink = 0.6 oz pur e alcohol) Comments Unknown Sex and Gender Information Value Date Recorded Sex Assigned at Not on file Legal Sex Female 5:34 PM 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 Gender Identity Not on file Sexual Orientation Not on file documented as of this encounter Plan of Treatment Not on file documented as of this encounter Procedures Procedure Name Priority Date/Time Associated Diagnosis Comments DERMATOPATHOLOGY Routine 02/28/2021 3:33 AM CDT documented in this encounter Results * DERMATOPATHOLOGY (02/28/2021 3:33 AM CDT) Case Report Dermatopathology Report Case: [id number] Authorizing Provider: Kwame Pathak MD Collected: 02/28/2021 03:33 AM Ordering Location: [facility] Received: 03/01/2021 12:11 PM Pathologist: Nara Christopher MD Specimens: A) - Skin, right mid lateral calf B) - Skin, right posterior lateral lower calf 3:42 PM T DERMATOPATHOLOGY LABORATORY Final Diagnosis Specimen A. SKIN, right mid lateral calf: POROKERATOSIS (Q82.8) Specimen B. SKIN, right posterior lateral lower calf: BASAL CELL CARCINOMA, NODULAR TYPE (C44.712) 3:42 PM CDT DERMATOPATHOLOGY LABORATORY at 1542 CDT Clinical History A-B: R/O BCC, SCC. 3:42 PM CDT DERMATOPATHOLOGY LABORATORY Gross Description Specimen A: Received is one formalin filled container labeled with the patient's name and designated right mid lateral calf. The specimen consists of a shave biopsy measuring [id number]. Jar 0. Specimen B: Received is one formalin filled container labeled with the patient's name and designated right posterior lateral lower calf. The specimen consists of a shave biopsy measuring [id number]. Jar 0. 3:42 PM CDT DERMATOPATHOLOGY LABORATORY Microscopic Description Specimen A. SKIN, right mid lateral calf: There is a sparse to moderately dense lichenoid lymphohistiocytic infiltrate, a thinned epidermis, and cornoid lamella formation. Specimen B. SKIN, right posterior lateral lower calf: Within the dermis there are aggregates of basaloid cells with a high nuclear to cytoplasmic ratio and peripheral palisading. 3:42 PM CDT DERMATOPATHOLOGY LABORATORY Disclaimer An external and internal positive and negative controls are appropriate for the histochemical, immunohistochemical and immunofluorescence stain(s) in this case (if any), except where stated explicitly. The performance characteristics of the stain(s) cited in this report were developed and its performance characteristic determined by the Dermatopathology Laboratory at [facility], directed by Dr. Delroy Christopher. These tests need not be, and therefore are not, approved by the [place] Food and Drug Administration. The tests are used for clinical purposes. Billing Codes Specimen Charges Stain Charges 86454 26003 1 1 1 3:42 PM CDT DERMATOPATHOLOGY LABORATORY Embedded Images 3:42 PM CDT DERMATOPATHOLOGY LABORATORY Pathology/Cytology TISSUE SPECIMEN FROM SKIN / Unknown 02/28/2021 3:33 AM CDT 03/01/2021 12:11 PM CDT Miscellaneous samples (specimen) TISSUE SPECIMEN FROM SKIN / Unknown 02/28/2021 3:33 AM CDT 03/01/2021 12:11 PM CDT Kwame Pathak MD LAB - PATHOLOGY/CYTOLOGY ORD ERABLES Final Result DERMATOPATHOLOGY LABORATORY [facility] - Department of Dermatology Specialized Medicine [address] [place] [address], [address] [phone] documented in this encounter Visit Diagnoses Not on filedocumented in this encounter Care Teams Director Of Home Care Hospice Relationship Specialty Start Date End Date Gabriel Walter MD [address] [facility] [address] [place] [address] PCP - General 07/13/15 documented as of this encounter
--- OUTSIDE RECORDS SUMMARY | 2025-05-02 07:51 | XMS_ITS | Clinical Summary ---
Author Organization [facility] Address [address] [place] [address] Care Team Providers Care Furniture Designer Name Role Phone Anuel Norton DO Primary Care Provider [phone] Allergies Active Allergy Reactions Criticality Noted Date Comments Sulfa (Sulfonamide Antibiotics) Rash Reaction: RASH, Medications calcium citrate 250 mg calcium tablet daily. Active glucosamine-msm- magnesium-vitC (GLUCOSAMINE COMPLEX-MSM) capsule Active magnesium oxide 500 mg capsule Activ e multivitamin tabletIndication s:Vitamin Deficiency Prevention Active strontium chloride hexahydrate (STRONTIUM CHL HEXAHYD, BULK,) 100 % crystals Activ e xlelwpzjb-L86-CC -resveratrol 200-5-0.8-400 mg capsule Active cyanocobalamin (Vitamin B-12) 100 mcg tabletIndication s:Prevention of Vitamin B12 Deficiency Active ascorbic acid, vitamin C, 500 mg capsule Active cholecalciferol (VITAMIN D-3) 10,000 unit tablet Active vitamin E (AQUASOL E) 400 unit capsule TAKE 1 CAPSULE EVERY MORNING Active phytonadione, vit K1, (PHYTONADIONE, VITAMIN K1,) 100 mcg tablet Active omega 2-ygr-ttr-fish oil (FISH OIL) 1,000 mg (120 mg-180 mg) capsule Active psbv-mnre-mvu-ibrahim k-hnm-spev-hor 301-007-112-125 mg tablet Take by mouth. Active Active Problems Problem Noted Date Diagnosed Date Cellulitis of head or scalp 10/13/2020 Assessment & Plan (10/27/2020 2:26 PM PRINCIPAL BIOSTATISTICIAN): Call if scalp irritation returns Continue Probiotic for two more weeks Assessment & Plan (10/13/2020 2:46 PM PRINCIPAL BIOSTATISTICIAN): Start Doxycycline 100 mg twice daily for 14 days, Probiotic such as Culturelle at a different meal 4 hours in between Follow up in 2 weeks Call if this becomes worse ASNHL (asymmetrical sensorineural hearing loss) 07/05/2019 Assessment & Plan (07/05/2019 10:44 AM PRINCIPAL BIOSTATISTICIAN): Flonase 2 sprays into each nostril while looking down over the sink, do not sniff in or blow nose after use. 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 Consider Head scan if Word recognition continues to decline Assessment & Plan (04/15/2019 3:00 PM CDT): Nasal saline (Rox[place] spray, NeilMed, Lil' Noses, [place]) or Neti-pot followed Flonase or Nasacort 2 sprays into each nostril while looking down over the sink, do not sniff in or blow nose after use daily Call if no improvement in 6 weeks Anosmia 04/15/2019 Assessment & Plan (04/15/2019 3:00 PM CDT): Nasal saline (Roxana spray, NeilMed, Lil' Noses, [place]) or Neti-pot followed Flonase or Nasacort 2 [...] on file Legal Sex Female 11:05 AM PRINCIPAL BIOSTATISTICIAN Gender Identity Not on file Sexual Orientation Not on file Obstetrics History Last Filed Vital Signs Vital Sign Reading Time Taken Comments Blood Pressure 137/74 10/27/2020 1:54 PM PRINCIPAL BIOSTATISTICIAN Pulse 81 10/27/2020 1:54 PM PRINCIPAL BIOSTATISTICIAN Temperature 36.1 C (96.9 F) 10/27/2020 1:54 PM PRINCIPAL BIOSTATISTICIAN Respiratory Rate - - Oxygen Saturation 99% 08/06/2016 12:19 PM PRINCIPAL BIOSTATISTICIAN Inhaled Oxygen Concentration - - Weight 58.1 kg (128 lb) 10/27/2020 1:54 PM PRINCIPAL BIOSTATISTICIAN Height 160 cm (5' 3) 10/27/2020 1:54 PM PRINCIPAL BIOSTATISTICIAN Body Mass Index 22.67 10/27/2020 1:54 PM PRINCIPAL BIOSTATISTICIAN Plan of Treatment Not on file Insurance MEDICARE [facility] MEDICARE [facility] Care Teams Furniture Designer Relationship Specialty Start Date End Date Anuel Norton DO PCP - General Internal Medicine 05/14/18
--- OUTSIDE RECORDS SUMMARY | 2025-05-02 07:51 | XMS_ITS | Clinical Summary ---
Author Organization [facility] [employer] Address [address] [place] [address] Care Team Providers Care Hide House Supervisor Name Role Phone Gabriel Walter MD Primary Care Provider [phone] Source Comments [facility] [employer],non-owned Affiliates and Associated Physician Practices is amultiple site organization consisting of ambulatory clinics and hospital sitesin [place], [place], [place] and [place]. This disclosure is being madepursuant to the Care Everywhere program and may not contain all information available regarding this patient. Last updated 18.[facility] [employer] Allergies Active Allergy Reactions Criticality Noted Date Comments Sulfa Drugs Skin Reactions Medium 08/07/2015 Medications * Be aware that medications may not be up to date on this document. Alwaysverify current medications with the patient. esomeprazole strontium 24.65 MG capsule Take by mouth. 04/22/2016 Active vitamin C (ASCORBIC ACID) 1000 MG tablet Take by mouth. 04/22/2016 Active Calcium Magnesium 240-180-100 LIQD Take by mouth. 04/22/2016 Active Family History Medical History Relation Name Comments [...] on file Legal Sex Female 5:34 PM SENIOR PAYROLL MANAGER Gender Identity Not on file Sexual Orientation Not on file Last Filed Vital Signs Vital Sign Reading Time Taken Comments Blood Pressure 174/102 10/20/2017 11:10 AM SENIOR PAYROLL MANAGER Pulse 67 10/20/2017 11:10 AM SENIOR PAYROLL MANAGER Temperature - - Respiratory Rate - - Oxygen Saturation 96% 10/20/2017 11:10 AM SENIOR PAYROLL MANAGER Inhaled Oxygen Concentration - - Weight 59 kg (130 lb) 10/20/2017 8:40 AM SENIOR PAYROLL MANAGER Height 157.5 cm (5' 2) 10/20/2017 8:40 AM SENIOR PAYROLL MANAGER Body Mass Index 23.78 10/20/2017 8:40 AM SENIOR PAYROLL MANAGER Plan of Treatment Health Maintenance Due Date Last Done Comments BONE DENSITY TESTING 1940 MEDICARE AWV 12 MONTHS 1941 DTAP/TDAP/TD VACCINES (1 - Tdap) 01/08/1960 PNEUMOCOCCAL VACCINE 50+ (1 of 1 - PCV) 1991 ZOSTER VACCINE (1 of 2) 1991 Respiratory Syncytial Virus (RSV) Vaccine Pt: or over 60 yrs (1 - 1-dose 75+ series) 01/08/2016 DEPRESSION SCREENING 08/25/2024 COVID-19 VACCINE (1 - 2023-2 5 season) 2025 INFLUENZA VACCINE (#1) 2025 HEPATITIS B VACCINE Aged Out No longe [...] on patient's age to complete this topic Insurance [facility] Care Teams Hide House Supervisor Relationship Specialty Start Date End Date Gabriel Walter MD [address] [place] [phone] PCP - General 07/13/15
--- OUTSIDE RECORDS SUMMARY | 2025-05-02 07:51 | XMS_ITS | Encounter Summary ---
Author Organization [facility] Address [address] [place] [address] Care Team Providers Care Kiln Hand Name Role Phone Gabriel Walter MD Primary Care Provider [phone] Encounter Details Date Type Department Care Team (Late st Contact Info) Description 04/08/2024 Lab Requisition [facility] - DermPath Lab [address] [facility], [place] [address] Kwame Pathak MD [address] [place] [address] Social History Tobacco Use Types Packs/Day Years Used Date Smoking Tobacco: Never Smokeless Tobacco: Never Alcohol Use Standard Drinks/Week Comments No 0 (1 standard drink = 0.6 oz pur e alcohol) Comments Unknown Sex and Gender Information Value Date Recorded Sex Assigned at Not on file Legal Sex Female 5:34 PM JANITOR CUSTODIAN Gender Identity Not on file Sexual Orientation Not on file documented as of this encounter Plan of Treatment Not on file documented as of this encounter Procedures Procedure Name Priority Date/Time Associated Diagnosis Comments DERMATOPATHOLOGY Routine 04/06/2024 12:0 0 AM CDT documented in this encounter Results * DERMATOPATHOLOGY (04/06/2024 12:00 AM CDT) Case Report Dermatopathology Report Case: [id number] Authorizing Provider: Kwame Pathak MD Collected: 04/06/2024 12:00 AM Ordering Location: [facility] - Received: 04/08/2024 09:52 AM DermPath Lab Pathologist: Nara Christopher MD Specimen: Skin, left distal medial leg above ankle 1:26 PM CDT DERMATOPATHOLOGY LABORATORY Final Diagnosis Specimen A. SKIN, left distal medial leg above ankle: DERMAL SCAR WITH OVERLYING EPIDERMAL CHANGES (L90.5) 1:26 PM CDT DERMATOPATHOLOGY LABORATORY at 1326 CDT Clinical History R/O SCC 1:26 PM CDT [...] characteristic determined by the Dermatopathology Laboratory at [facility], directed by Dr. Delroy Christopher. These tests need not be, and therefore are not, approved by the [place] Food and Drug Administration. The tests are used for clinical purposes. Billing Codes Specimen Charges Stain Charges 76593 1 1:26 PM CDT DERMATOPATHOLOGY LABORATORY Embedded Images 1:26 PM CDT DERMATOPATHOLOGY LABORATORY Pathology/Cytolog y TISSUE SPECIMEN FROM SKIN / Unknown 04/06/2024 04/08/2024 9:52 AM CDT Kwame Pathak MD LAB - PATHOLOGY/CYTOLOGY ORD ERABLES Final Result DERMATOPATHOLOGY LABORATORY [facility] - Department of Dermatology [facility] Specialized Medicine [facility] [facility], [address]rd [address] [phone] documented in this encounter Visit Diagnoses Not on filedocumented in this encounter Care Teams Kiln Hand Relationship Specialty Start Date End Date Gabriel Walter MD [address] [facility] [address] [place] [address] PCP - General 07/13/15 documented as of this encounter
[2025-05-02 08:24] LABS: Hematocrit 42.2 % (37.0-47.0); Hemoglobin 13.8 g/dL (12.0-15.0); Mean Corpuscular HGB Conc 32.7 g/dl (32-36); Mean Corpuscular Hemoglobin 29.4 pg (26-34); Mean Corpuscular Volume 89.8 fl (80-100); Platelet Count Result 284 k/mm3 (150-375); Red Blood Count 4.70 M/mm3 (4.2-5.4); White Blood Count 4.7 K/mm3 (4.5-10.0)
[2025-05-02 08:54] LABS: Alanine Aminotransferase 14 U/L (6-35); Albumin Level 4.3 g/dL (3.5-5.1); Alkaline Phosphatase 85 U/L (38-126); Anion Gap 6 mmol/L (4-12); Aspartate Amino Transferase 29 U/L (14-36); Bilirubin,Total 1.1 mg/dL (0.2-1.3); Blood Urea Nitrogen 24 mg/dL (7-17); Calcium 9.5 mg/dL (8.4-10.2); Carbon Dioxide 28 mmol/L (22-30); Chloride 103 mmol/L (98-107); Cholesterol 288 mg/dL (0-200); Estimated Glomerular Filt Rate 49; Glucose 90 mg/dL (65-110); HDL Direct 92 mg/dL; Potassium 4.5 mmol/L (3.4-5.0); Sodium 137 mmol/L (137-145); Total Protein 7.7 g/dL (6.3-8.2); Triglycerides 116 mg/dL (<150)
[2025-05-02 09:23] LABS: Thyroid Stimulating Hormone 2.720 uIU/mL (0.465-4.680)
== END 2025-05-02 07:45 | disposition home or self-care (01) ==
PROVIDERS: PCP Internal Medicine; Visit Provider Nurse Practitioner
DX: E78.5 Hyperlipidemia, unspecified (principal); Z13.29 Encounter for screening for other suspected endocrine disorder; I10 Essential (primary) hypertension; E55.9 Vitamin D deficiency, unspecified
CPT/HCPCS: 36415; 80053; 80061; 82306; 84443; 85027

== ENCOUNTER 2025-06-16 12:50 | Outpatient (CLI) | payer MEDICARE, SELFPAY ==
--- OUTSIDE RECORDS SUMMARY | 2025-06-16 13:42 | XMS_ITS | Encounter Summary ---
Author Organization [facility] Address [address] [facility] [place] [address] Care Team Providers Care Assistant Department Manager Name Role Phone Gabriel Walter MD Primary Care Provider [phone] Encounter Details Date Type Department Care Team (Late st Contact Info) Description 03/01/2021 Lab Requisition [facility] DermPath Lab [address] [place] [address] Kwame Pathak MD [address] [place] [address] Social History Tobacco Use Types Packs/Day Years Used Date Smoking Tobacco: Never Smokeless Tobacco: Never Alcohol Use Standard Drinks/Week Comments No 0 (1 standard drink = 0.6 oz pur e alcohol) Comments Unknown Sex and Gender Information Value Date Recorded Sex Assigned at Not on file 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 Jar 0. Specimen B: Received is one formalin filled container labeled with the patient's name and designated right posterior lateral lower calf. The specimen consists of a shave biopsy measuring [id number]. Jar 0. 3:42 PM CDT DERMATOPATHOLOGY LABORATORY [...] characteristic determined by the Dermatopathology Laboratory at [facility], directed by Dr. Delroy Christopher. These tests need not be, and therefore are not, approved by the [place] Food and Drug Administration. The tests are used for clinical purposes. Billing Codes Specimen Charges Stain Charges 51156 39385 1 1 1 3:42 PM CDT DERMATOPATHOLOGY LABORATORY Embedded Images 3:42 PM CDT DERMATOPATHOLOGY LABORATORY Pathology/Cytology TISSUE SPECIMEN FROM SKIN / Unknown 02/28/2021 3:33 AM CDT 03/01/2021 12:11 PM CDT Miscellaneous samples (specimen) TISSUE SPECIMEN FROM SKIN / Unknown 02/28/2021 3:33 AM CDT 03/01/2021 12:11 PM CDT Kwame Pathak MD LAB - PATHOLOGY/CYTOLOGY ORD ERABLES Final Result DERMATOPATHOLOGY LABORATORY [facility] - Department of Dermatology [facility] Specialized Medicine [address] [place] [address], [address] [phone] documented in this encounter Visit Diagnoses Not on filedocumented in this encounter Care Teams Assistant Department Manager Relationship Specialty Start Date End Date Gabriel Walter MD [address] [facility] [address] [place] [address] PCP - General 07/13/15 documented as of this encounter
--- OUTSIDE RECORDS SUMMARY | 2025-06-16 13:42 | XMS_ITS | Encounter Summary ---
Author Organization [facility] Address [address] [place] [address] Care Team Providers Care Jewish History Professor Name Role Phone Gabriel Walter MD Primary Care Provider [phone] Encounter Details Date Type Department Care Team (Late st Contact Info) Description 04/08/2024 Lab Requisition [facility] - DermPath Lab [address] [facility] [place] [address] Kwame Pathak MD [address] [place] [address] Social History Tobacco Use Types Packs/Day Years Used Date Smoking Tobacco: Never Smokeless Tobacco: Never Alcohol Use Standard Drinks/Week Comments No 0 (1 standard drink = 0.6 oz pur e alcohol) Comments Unknown Sex and Gender Information Value Date Recorded Sex Assigned at Not on file 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 Billing Codes Specimen Charges Stain Charges [id number] 1 1:26 PM CDT DERMATOPATHOLOGY LABORATORY Embedded Images 1:26 PM CDT DERMATOPATHOLOGY LABORATORY Pathology/Cytolog y TISSUE SPECIMEN FROM SKIN / Unknown 04/06/2024 04/08/2024 9:52 AM CDT Kwame Pathak MD LAB - PATHOLOGY/CYTOLOGY ORD ERABLES Final Result DERMATOPATHOLOGY LABORATORY [facility] - Department of Dermatology Specialized Medicine [facility] [facility], 3rd Floor [address] [phone] documented in this encounter Visit Diagnoses Not on filedocumented in this encounter Care Teams Jewish History Professor Relationship Specialty Start Date End Date Gabriel Walter MD [address] [facility] [address] [place] [address] PCP - General 07/13/15 documented as of this encounter
--- OUTSIDE RECORDS SUMMARY | 2025-06-16 13:43 | XMS_ITS | Clinical Summary ---
Author Organization [facility] Address [address] [place] [address] Care Team Providers Care Front Of House Manager Name Role Phone Gabriel Walter MD Primary Care Provider [phone] Source Comments [facility],non-owned Affiliates and Associated Physician Practices is amultiple site organization consisting of ambulatory clinics and hospital sitesin [place], [place], [place] and [place]. This disclosure is being madepursuant to the Care Everywhere program and may not contain all information available regarding this patient. Last updated 18.[facility] Allergies Active Allergy Reactions Criticality Noted Date [...] on file Legal Sex Female 5:34 PM ADMIN PROG COORD Gender Identity Not on file Sexual Orientation Not on file Last Filed Vital Signs Vital Sign Reading Time Taken Comments Blood Pressure 174/102 10/20/2017 11:10 AM ADMIN PROG COORD Pulse 67 10/20/2017 11:10 AM ADMIN PROG COORD Temperature - - Respiratory Rate - - Oxygen Saturation 96% 10/20/2017 11:10 AM ADMIN PROG COORD Inhaled Oxygen Concentration - - Weight 59 kg (130 lb) 10/20/2017 8:40 AM ADMIN PROG COORD Height 157.5 cm (5' 2) 10/20/2017 8:40 AM ADMIN PROG COORD Body Mass Index 23.78 10/20/2017 8:40 AM ADMIN PROG COORD Plan of Treatment Health Maintenance Due Date [...] age to complete this topic Insurance [facility] Care Teams Front Of House Manager Relationship Specialty Start Date End Date Gabriel Walter MD [address] [place] [address] [place] [id number] PCP - General 07/13/15
--- OUTSIDE RECORDS SUMMARY | 2025-06-16 13:43 | XMS_ITS | Encounter Summary ---
Author Organization [facility] Address [address] [place] [address] Care Team Providers Care Home Maker Name Role Phone Gabriel Walter MD Primary Care Provider [phone] Encounter Details Date Type Department Care Team (Late st Contact Info) Description 04/07/2020 Lab Requisition [facility] Care DermPath Lab [address] [place] [address] Kwame Pathak MD [address] [place] [address] Social History Tobacco Use Types Packs/Day Years Used Date Smoking Tobacco: Never Smokeless Tobacco: Never Alcohol Use Standard Drinks/Week Comments No 0 (1 standard drink = 0.6 oz pur e alcohol) Comments Unknown Sex and Gender Information Value Date Recorded Sex Assigned at Not on file 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 Jar 0. 0 3:42 PM CDT [...] characteristic determined by the Dermatopathology Laboratory at [facility], directed by Dr. Delroy Christopher. These tests need not be, and therefore are not, approved by the [place] Food and Drug Administration. The tests are used for clinical purposes. Billing Codes Specimen Charges Stain Charges [id number] 1 0 3:42 PM CDT DERMATOPATHOLOGY LABORATORY Embedded Images 0 3:42 PM CDT DERMATOPATHOLOGY LABORATORY Pathology/Cytolog y TISSUE SPECIMEN FROM SKIN / Unknown 04/05/2020 04/07/2020 2:30 PM CDT us Kwame Pathak MD LAB - PATHOLOGY/CYTOLOGY ORD ERABLES Final Result DERMATOPATHOLOGY LABORATORY [facility] - Department of Dermatology Automatic Maintainer [place] [id number], [place] [phone] documented in this encounter Visit Diagnoses Not on filedocumented in this encounter Care Teams Home Maker Relationship Specialty Start Date End Date Gabriel Walter MD [address] [place] [address] [place] [address] PCP - General 07/13/15 documented as of this encounter
--- OUTSIDE RECORDS SUMMARY | 2025-06-16 13:43 | XMS_ITS | Clinical Summary ---
Author Organization [facility] Address [address] [place] [address] Care Team Providers Care Mathematics Professor Name Role Phone Anuel Norton DO Primary Care Provider [phone] Allergies Active Allergy Reactions Criticality Noted Date Comments Sulfa (Sulfonamide Antibiotics) Rash Reaction: RASH, Medications calcium citrate 250 mg calcium tablet daily. Active glucosamine-msm- magnesium-vitC (GLUCOSAMINE COMPLEX-MSM) capsule Active magnesium oxide 500 mg capsule Activ e multivitamin tabletIndication s:Vitamin Deficiency Prevention Active strontium chloride hexahydrate (STRONTIUM CHL HEXAHYD, BULK,) 100 % crystals Activ e jiwsdwpqz-[id number]-HZ -resveratrol 200-5-0.8-400 mg capsule Active cyanocobalamin (Vitamin B-12) 100 mcg tabletIndication s:Prevention of Vitamin B12 Deficiency Active ascorbic acid, vitamin C, 500 mg capsule Active cholecalciferol (VITAMIN D-3) 10,000 unit tablet Active vitamin E (AQUASOL E) 400 unit capsule TAKE 1 CAPSULE EVERY MORNING Active phytonadione, vit K1, (PHYTONADIONE, VITAMIN K1,) 100 mcg tablet Active omega 4-nbx-hqv-fish oil (FISH OIL) 1,000 mg (120 mg-180 mg) capsule Active uvxk-yqgo-esn-ibrahim d-vmy-xdej-hor 505-369-333-125 mg tablet Take by mouth. Active Active Problems Problem Noted Date Diagnosed Date Cellulitis of head or scalp 10/13/2020 Assessment & Plan (10/27/2020 2:26 PM ROOF BOLTER OPERATOR): Call if scalp irritation returns Continue Probiotic for two more weeks Assessment & Plan (10/13/2020 2:46 PM ROOF BOLTER OPERATOR): Start Doxycycline 100 mg twice daily for 14 days, Probiotic such as Culturelle at a different meal 4 hours in between Follow up in 2 weeks Call if this becomes worse ASNHL (asymmetrical sensorineural hearing loss) 07/05/2019 Assessment & Plan (07/05/2019 10:44 AM ROOF BOLTER OPERATOR): Flonase 2 sprays into each nostril while looking down over the sink, do not sniff in or blow nose after use. 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 Consider Head scan if Word recognition continues to decline Assessment & Plan (04/15/2019 3:00 PM CDT): Nasal saline (Blackford spray, NeilMed, Lil' Noses, [place]) or Neti-pot followed Flonase or Nasacort 2 sprays into each nostril while looking down over the sink, do not sniff in or blow nose after use daily Call if no improvement in 6 weeks Anosmia 04/15/2019 Assessment & Plan (04/15/2019 3:00 PM CDT): Nasal saline (Blackford spray, NeilMed, Lil' Noses, [place]) or Neti-pot followed Flonase or Nasacort 2 [...] on file Legal Sex Female 11:05 AM ROOF BOLTER OPERATOR Gender Identity Not on file Sexual Orientation Not on file Obstetrics History Last Filed Vital Signs Vital Sign Reading Time Taken Comments Blood Pressure 137/74 10/27/2020 1:54 PM ROOF BOLTER OPERATOR Pulse 81 10/27/2020 1:54 PM ROOF BOLTER OPERATOR Temperature 36.1 C (96.9 F) 10/27/2020 1:54 PM ROOF BOLTER OPERATOR Respiratory Rate - - Oxygen Saturation 99% 08/06/2016 12:19 PM ROOF BOLTER OPERATOR Inhaled Oxygen Concentration - - Weight 58.1 kg (128 lb) 10/27/2020 1:54 PM ROOF BOLTER OPERATOR Height 160 cm (5' 3) 10/27/2020 1:54 PM ROOF BOLTER OPERATOR Body Mass Index 22.67 10/27/2020 1:54 PM ROOF BOLTER OPERATOR Plan of Treatment Not on file Insurance MEDICARE [facility] MEDICARE [facility] Care Teams Mathematics Professor Relationship Specialty Start Date End Date Anuel Norton DO PCP - General Internal Medicine 05/14/18
== END 2025-06-16 12:51 | disposition home or self-care (01) ==
LOC: ANHAUDASC 12:52
PROVIDERS: PCP Nurse Practitioner; Visit Provider Nurse Practitioner
DX: H90.3 Sensorineural hearing loss, bilateral (principal); H61.22 Impacted cerumen, left ear
CPT/HCPCS: 92557; 92567